=== PATIENT | male | born 1990 | race Caucasian/White ===

== ENCOUNTER 2024-04-10 18:23 | Emergency (ER) | payer SELFPAY ==
[~2024-04-10] VITALS: Ht 172.7 cm; Wt 68.0 kg
[2024-04-10] MEDS ORDERED: HYDROcodone 5-APAP 325 TAB PO ONE (18:50)
[2024-04-10] MEDS ORDERED: Ketorolac Tromethamine 30mg Vial IM ONE (18:50)
== END 2024-04-10 19:15 | disposition home or self-care (01) ==
LOC: ER 18:23
DX: M25.512 Pain in left shoulder (principal); Z88.0 Allergy status to penicillin; Z88.2 Allergy status to sulfonamides
CPT/HCPCS: 96372; 99282-25; A9270; J1885